=== PATIENT | male | born 1960 | race African-American/Black ===

== ENCOUNTER 2018-10-26 12:10 | Inpatient (IN) ==
[2018-10-26] MEDS ORDERED: NITROGLYCERIN SL 0.4 MG TABLET SL PRN (15:50)
[2018-10-26] MEDS ORDERED: ONDANSETRON 4 MG/2 ML VIAL IV PRN (15:50)
[2018-10-26] MEDS ORDERED: POTASSIUM CHLORIDE 20 MEQ TABLET PO PRN (15:50)
[2018-10-26 18:18] LABS: Risk Ratio 3.05
[2018-10-26] MEDS ORDERED: ENOXAPARIN 40 MG/0.4 ML SYRINGE SUBCUT SCH (21:00)
[2018-10-27 05:18] LABS: Basophils % 0.8 % (0.0-0.8); Eosinophils # 0.2 10*3/uL (0.0-0.87); Eosinophils % 3.8 % (0.00-10.9); Hematocrit 43.4 VOL% (42.0-52.0); Hemoglobin 14.2 GM/DL (14.0-18.0); Immature Granulocytes % 0.4 %; Immature Granulocytes Absolute 0.02 #; Lymphocytes # 3.1 10*3/uL (1.4-4.0); Lymphocytes % 57.7 % (21.2-54.2); Mean Corpuscular HGB Conc 32.7 GM/DL (32-36); Mean Corpuscular Volume 90.2 FL (87-102); Mean Platelet Volume 12.5 FL (9.6-12.0); Monocytes % 8.7 % (1.7-12.7); Neutrophils % 28.6 % (38.7-73.9); Platelet Count 191 T/CUMM (130-400); Red Blood Count 4.81 MC/CUMM (3.8-5.5); Red Cell Distribution Width 12.8 % (9.3-17.3); White Blood Count 5.3 T/CUMM (4-12)
[2018-10-27 05:41] LABS: Eosinophils 4 % (0-10); Hypochromasia 1+; Lymphocytes 50 % (20-55); Platelet Estimate Adequate; Segmented Neutrophils 38 % (50-85); Total Cells Counted 100
[2018-10-27 05:42] LABS: Atypical Lymphocytes Few
[2018-10-27 06:00] LABS: Albumin 3.6 G/DL (3.4-5.0); Calcium 9.2 MG/DL (8.5-10.1); Osmolality,Calculated 274.7 MOS/KG (273-304); Total Protein 7.7 G/DL (6.4-8.3)
[2018-10-27] MEDS ORDERED: amLODIPine 10 MG TABLET PO SCH (09:00)
[2018-10-27] MEDS ORDERED: ASPIRIN EC 325 MG TABLET PO SCH (09:00)
[2018-10-27] MEDS ORDERED: HEPARIN DRIP 25,000 UNITS/500 ML PREMIX IV SCH (09:30)
[2018-10-27] MEDS ORDERED: CLOPIDOGREL 300 MG TABLET PO ONE (09:33)
[2018-10-27] MEDS: ASPIRIN EC 81 MG TABLET PO SCH (10:02)
[2018-10-27] MEDS: LISINOPRIL/HCTZ 20-25 MG TABLET PO SCH (10:02)
[2018-10-27] MEDS: ATORVASTATIN 40 MG TABLET PO SCH (10:03)
[2018-10-27] MEDS: SODIUM CHLORIDE 0.45% 1,000 ML IV SCH ×2 (10:04→17:33)
[2018-10-27] MEDS ORDERED: MAGNESIUM SULF RIDER 2 GM in PREMIX 1 EACH IV PRN (10:27)
[2018-10-27] MEDS ORDERED: DIAZEPAM 5 MG TABLET PO ONE (10:27)
[2018-10-27] MEDS ORDERED: diphenhydrAMINE CAP 25 MG CAPSULE PO ONE (10:27)
[2018-10-27] MEDS ORDERED: LIDOCAINE 1% 20 ML VIAL ONE (10:34)
[2018-10-27] MEDS ORDERED: HEPARIN/NACL 0.9% 2 UNITS/ML 1,000 ML IV ONE (10:34)
[2018-10-27] MEDS ORDERED: MIDAZOLAM 2 MG/2 ML VIAL ONE (10:54)
[2018-10-27] MEDS ORDERED: fentaNYL 100 MCG/2 ML VIAL ONE (10:54)
[2018-10-27] MEDS: METOPROLOL SUCCINATE XL 25 MG TABLET PO SCH (13:45)
[2018-10-27] MEDS: HEPARIN DRIP 25,000 UNITS/500 ML PREMIX IV SCH (14:47)
[2018-10-27] MEDS ORDERED: HEPARIN 5,000 UNIT/1 ML VIAL IV ONE (17:32)
[2018-10-28 05:41] LABS: Basophils % 0.7 % (0.0-0.8); Eosinophils # 0.2 10*3/uL (0.0-0.87); Eosinophils % 3.6 % (0.00-10.9); Hematocrit 43.2 VOL% (42.0-52.0); Hemoglobin 14.5 GM/DL (14.0-18.0); Immature Granulocytes % 0.3 %; Immature Granulocytes Absolute 0.02 #; Lymphocytes # 2.9 10*3/uL (1.4-4.0); Lymphocytes % 49.8 % (21.2-54.2); Mean Corpuscular HGB Conc 33.6 GM/DL (32-36); Mean Corpuscular Volume 88.9 FL (87-102); Mean Platelet Volume 13.1 FL (9.6-12.0); Neutrophils % 36.6 % (38.7-73.9); Platelet Count 179 T/CUMM (130-400); Red Blood Count 4.86 MC/CUMM (3.8-5.5); Red Cell Distribution Width 12.6 % (9.3-17.3); White Blood Count 5.9 T/CUMM (4-12)
[2018-10-28 06:01] LABS: Calcium 9.1 MG/DL (8.5-10.1); Osmolality,Calculated 276.7 MOS/KG (273-304)
[2018-10-28 06:05] LABS: Eosinophils 4 % (0-10); Hypochromasia Slight; Lymphocytes 46 % (20-55); Platelet Estimate Adequate; Segmented Neutrophils 44 % (50-85); Total Cells Counted 100
[2018-10-28] MEDS ORDERED: CLOPIDOGREL 75 MG TABLET PO SCH (09:00)
[2018-10-28] MEDS: ATORVASTATIN 40 MG TABLET PO SCH (09:06)
[2018-10-28] MEDS: METOPROLOL SUCCINATE XL 25 MG TABLET PO SCH (09:06)
[2018-10-28] MEDS: ASPIRIN EC 81 MG TABLET PO SCH (09:06)
[2018-10-28] MEDS: LISINOPRIL/HCTZ 20-25 MG TABLET PO SCH (09:07)
[2018-10-28] MEDS: HEPARIN DRIP 25,000 UNITS/500 ML PREMIX IV SCH ×2 (09:07→15:35)
[2018-10-28] MEDS: SODIUM CHLORIDE 0.45% 1,000 ML IV SCH ×2 (11:37)
[2018-10-29 05:01] LABS: Basophils % 0.6 % (0.0-0.8); Eosinophils # 0.2 10*3/uL (0.0-0.87); Eosinophils % 2.8 % (0.00-10.9); Immature Granulocytes % 0.3 %; Immature Granulocytes Absolute 0.02 #; Lymphocytes # 2.9 10*3/uL (1.4-4.0); Lymphocytes % 45.6 % (21.2-54.2); Mean Corpuscular HGB Conc 33.3 GM/DL (32-36); Mean Platelet Volume 12.7 FL (9.6-12.0); Monocytes % 10.1 % (1.7-12.7); Neutrophils % 40.6 % (38.7-73.9); Platelet Count 175 T/CUMM (130-400); Red Blood Count 4.72 MC/CUMM (3.8-5.5); Red Cell Distribution Width 12.6 % (9.3-17.3); White Blood Count 6.4 T/CUMM (4-12)
[2018-10-29 05:17] LABS: Calcium 9.2 MG/DL (8.5-10.1); Osmolality,Calculated 273.8 MOS/KG (273-304)
[2018-10-29] MEDS: HEPARIN DRIP 25,000 UNITS/500 ML PREMIX IV SCH (07:24)
[2018-10-29] MEDS: SODIUM CHLORIDE 0.45% 1,000 ML IV SCH ×3 (07:52→23:28)
[2018-10-29] MEDS: METOPROLOL SUCCINATE XL 25 MG TABLET PO SCH (09:20)
[2018-10-29] MEDS: LISINOPRIL/HCTZ 20-25 MG TABLET PO SCH (09:21)
[2018-10-29] MEDS: ATORVASTATIN 40 MG TABLET PO SCH (09:21)
[2018-10-29] MEDS: ASPIRIN EC 81 MG TABLET PO SCH (09:21)
[2018-10-29] MEDS: POTASSIUM CHLORIDE 20 MEQ TABLET PO PRN ×3 (10:43→14:50)
[2018-10-29] MEDS: SODIUM CHLORIDE 0.9% 1,000 ML IV SCH (14:47)
[2018-10-29] MEDS: CHLORHEXIDINE 4% SOLN 118 ML BOTTLE TOP SCH ×2 (14:53→21:11)
[2018-10-29] MEDS: CHLORHEXIDINE 0.12% ORAL RINSE 60 ML BOTTLE SWISH/SPIT SCH (21:08)
[2018-10-30 04:11] LABS: Basophils % 0.5 % (0.0-0.8); Eosinophils # 0.2 10*3/uL (0.0-0.87); Eosinophils % 3.8 % (0.00-10.9); Hematocrit 42.5 VOL% (42.0-52.0); Immature Granulocytes % 0.5 %; Immature Granulocytes Absolute 0.03 #; Lymphocytes # 2.5 10*3/uL (1.4-4.0); Lymphocytes % 42.6 % (21.2-54.2); Mean Corpuscular HGB Conc 32.9 GM/DL (32-36); Mean Corpuscular Volume 89.9 FL (87-102); Mean Platelet Volume 12.4 FL (9.6-12.0); Neutrophils % 41.6 % (38.7-73.9); Platelet Count 176 T/CUMM (130-400); Red Blood Count 4.73 MC/CUMM (3.8-5.5); Red Cell Distribution Width 12.7 % (9.3-17.3); White Blood Count 5.8 T/CUMM (4-12)
[2018-10-30] MEDS ORDERED: PAPAVERINE 60 MG/2 ML VIAL ONE (04:26)
[2018-10-30] MEDS ORDERED: TISSUE ADHESIVE 1 EACH APPLICATOR TOP ONE (04:26)
[2018-10-30] MEDS ORDERED: VANCOMYCIN 1,000 MG VIAL ONE (04:26)
[2018-10-30] MEDS: CHLORHEXIDINE 4% SOLN 118 ML BOTTLE TOP SCH ×2 (04:30→08:41)
[2018-10-30 04:32] LABS: Calcium 9.4 MG/DL (8.5-10.1); Osmolality,Calculated 272.8 MOS/KG (273-304)
[2018-10-30] MEDS ORDERED: SUFentanil 50 MCG/ML AMP ONE (05:53)
[2018-10-30] MEDS ORDERED: SUFentanil 250 MCG/5 ML AMP ONE (05:53)
[2018-10-30] MEDS ORDERED: ePHEDrine 50 MG/ML AMP ONE (05:54)
[2018-10-30] MEDS ORDERED: MIDAZOLAM 10 MG/2 ML VIAL ONE (05:54)
[2018-10-30] MEDS: METOPROLOL SUCCINATE XL 25 MG TABLET PO SCH ×2 (06:04→08:42)
[2018-10-30] MEDS ORDERED: DIAZEPAM 5 MG TABLET PO ONE (06:30)
[2018-10-30] MEDS ORDERED: FAMOTIDINE 20 MG TABLET PO ONE (06:30)
[2018-10-30] MEDS ORDERED: CEFUROXIME 1,500 MG VIAL ONE (06:48)
[2018-10-30 07:35] LABS: ABG Base Excess 0.6 MMOL/L (-2.5-2.5); ABG Oxygen Saturation 99.9 % (95-100); ABG PCO2 35.8 MM HG (35-48); ABG TCO2 20.9 MMOL/L (23-27); Glucose Heart Surgery 119 MG/DL (74-106); Hematocrit Heart Surgery 42.2 PERCENT (42-52); Hemoglobin Heart Surgery 13.8 G/DL (14.0-18.0); Ionized Calcium Arterial 1.21 MMOL/L (1.21-1.46); PCO2 Patient Temp Arterial 35.8 MMHG; Patient Temperature 37 CELCIUS; Sodium Heart/CVR 137 MMOL/L (135-145)
[2018-10-30 07:57] LABS: Apearance,Urine CLEAR (Clear); Bilirubin,Urine Negative (Negative); Blood, Urine Moderate mg/dL (Negative); Glucose,Urine (UA) Negative (Negative); Ketones,Urine Negative (Negative); Mucus,Urine Occasional /LPF (Occasional); Nitrite,Urine Negative (Negative); Protein,Urine Negative; RBC,Urine 6 /HPF (0-4); Squamous Epithelial Cell,Urine Occasional /HPF (0-10); Urine Color Straw (Yellow); Urine Specific Gravity 1.008 (1.001-1.035); Urine Urobilinogen < 2.0 EU/DL (0.2-1.0); WBC,Urine <1 /HPF (0-6)
[2018-10-30] MEDS: ATORVASTATIN 40 MG TABLET PO SCH (08:41)
[2018-10-30] MEDS: ASPIRIN EC 81 MG TABLET PO SCH (08:41)
[2018-10-30] MEDS: SODIUM CHLORIDE 0.45% 1,000 ML IV SCH ×4 (08:41→23:29)
[2018-10-30] MEDS: LISINOPRIL/HCTZ 20-25 MG TABLET PO SCH (08:42)
[2018-10-30] MEDS: CEFUROXIME INJ 1,500 MG in SYRINGE 1 EACH IV ONE ×2 (08:42→09:03)
[2018-10-30] MEDS: SODIUM CHLORIDE 0.9% 1,000 ML IV SCH (08:42)
[2018-10-30] MEDS: CHLORHEXIDINE 0.12% ORAL RINSE 60 ML BOTTLE SWISH/SPIT SCH ×2 (08:42→21:47)
[2018-10-30] MEDS: HEPARIN DRIP 25,000 UNITS/500 ML PREMIX IV SCH (08:51)
[2018-10-30 08:52] LABS: Hematocrit Heart Surgery 29.7 PERCENT (42-52); Hemoglobin Heart Surgery 9.6 G/DL (14.0-18.0); PCO2 Patient Temp Venous 32.3 MM HG; PH Patient Temp Venous 7.49; PO2 Patient Temp Venous 39.3 MM HG; Potassium Heart/CVR 4.7 MMOL/L (3.5-5.1); VBG Base Excess 1.7 MEQ/L (0-4); VBG HCO3 25.7 MEQ/L (24-28); VBG PCO2 35.6 MMHG (41-51); VBG PH 7.46; VBG PO2 45.1 MMHG (17-40)
[2018-10-30] MEDS ORDERED: NITROPRUSSIDE 50 MG/2 ML VIAL ONE (08:55)
[2018-10-30] MEDS ORDERED: CALCIUM CHLORIDE 1,000 MG/10 ML SYRINGE IV ONE (08:55)
[2018-10-30] MEDS ORDERED: SODIUM BICARBONATE 50 MEQ/50 ML VIAL IV ONE ×2 (08:55→09:55)
[2018-10-30] MEDS ORDERED: PHENYLEPHRINE DRIP 40 MG/250 ML PREMIX IV ONE (08:55)
[2018-10-30] MEDS ORDERED: POTASSIUM CHLORIDE RIDER 100 ML IV ONE (08:56)
[2018-10-30] MEDS ORDERED: ALBUMIN 5% 12.5 GM/250 ML VIAL IV ONE ×2 (08:56→10:29)
[2018-10-30 09:37] LABS: ABG Base Excess -2.6 MMOL/L (-2.5-2.5); ABG HCO3 22.3 MMOL/L (20-26); ABG Oxygen Saturation 99.7 % (95-100); ABG PCO2 40.5 MM HG (35-48); ABG PH 7.357 (7.35-7.45); ABG TCO2 20.4 MMOL/L (23-27); Glucose Heart Surgery 229 MG/DL (74-106); Hematocrit Heart Surgery 34.9 PERCENT (42-52); Hemoglobin Heart Surgery 11.3 G/DL (14.0-18.0); Ionized Calcium Arterial 1.33 MMOL/L (1.21-1.46); PCO2 Patient Temp Arterial 40.5 MMHG; PH Patient Temp Arterial 7.357; Patient Temperature 37 CELCIUS; Potassium Heart/CVR 3.8 MMOL/L (3.5-5.1); Sodium Heart/CVR 134 MMOL/L (135-145)
[2018-10-30] MEDS ORDERED: ALBUMIN 25% 25 GM/100 ML VIAL IV ONE (09:55)
[2018-10-30] MEDS ORDERED: MANNITOL 100 GM/500 ML BAG IV ONE (09:55)
[2018-10-30] MEDS ORDERED: DEXTROSE 5% KCL 20 MEQ 20 MEQ/1,000 ML BAG IV ONE (09:55)
[2018-10-30] MEDS ORDERED: MAGNESIUM SULFATE 5 GM/10 ML VIAL IV ONE (09:55)
[2018-10-30] MEDS ORDERED: PROTAMINE SULFATE 250 MG/25 ML VIAL IV ONE (09:55)
[2018-10-30] MEDS ORDERED: LIDOCAINE 2% 5 ML VIAL ONE ×2 (09:55→10:29)
[2018-10-30] MEDS ORDERED: HEPARIN 10,000 UNIT/10 ML VIAL ONE (09:56)
[2018-10-30] MEDS ORDERED: FUROSEMIDE 20 MG/2 ML VIAL ONE (09:56)
[2018-10-30] MEDS ORDERED: PROTAMINE SULFATE 50 MG/5 ML VIAL IV ONE (09:56)
[2018-10-30] MEDS ORDERED: methylPREDNISolone SOD SUC 1,000 MG/8 ML VIAL ONE (09:56)
[2018-10-30 10:06] LABS: HIV Antigen/Antibody Result Nonreactive (Nonreactive); Hepatitis B Surface Ag Quant 0.11 Index; Hepatitis B Surface Ag Result Negative (Negative); Hepatitis C Virus Ab Quant 0.55 Index; Hepatitis C Virus Ab Result Negative (Negative)
[2018-10-30] MEDS ORDERED: PHENYLEPHRINE DRIP 20 MG/250 ML PREMIX IV ONE (10:29)
[2018-10-30] MEDS ORDERED: CALCIUM CHLORIDE 1,000 MG/10 ML VIAL IV ONE (10:29)
[2018-10-30] MEDS ORDERED: SEVOFLURANE 1 UNIT/15 MINUTE INH ONE (10:30)
[2018-10-30] MEDS ORDERED: VECURONIUM 10 MG VIAL IV ONE (10:30)
[2018-10-30] MEDS ORDERED: NITROGLYCERIN DRIP 50 MG/250 ML BOTTLE IV ONE (10:30)
[2018-10-30] MEDS ORDERED: AMINOCAPROIC ACID 5,000 MG/20 ML VIAL ONE (10:30)
[2018-10-30] MEDS ORDERED: ETOMIDATE 40 MG/20 ML VIAL IV ONE (10:30)
[2018-10-30] MEDS ORDERED: SODIUM CHLORIDE 0.9% 1,000 ML IV ONE (10:30)
[2018-10-30] MEDS ORDERED: SODIUM CHLORIDE 0.9% 250 ML IV ONE (10:30)
[2018-10-30] MEDS ORDERED: SODIUM CHLORIDE 0.9% 100 ML IV ONE (10:30)
[2018-10-30] MEDS ORDERED: LACTATED RINGERS 1,000 ML IV ONE (10:30)
[2018-10-30] MEDS ORDERED: METOPROLOL TARTRATE 5 MG/5 ML VIAL IV ONE (10:30)
[2018-10-30] MEDS ORDERED: HEPARIN/NACL 0.9% 2 UNITS/ML 500 ML IV ONE (10:31)
[2018-10-30] MEDS: ALBUMIN 5% 12.5 GM in PREMIX 1 EACH IV PRN ×3 (10:45→15:04)
[2018-10-30] MEDS ORDERED: MORPHINE 10 MG/1 ML VIAL IV PRN (10:58)
[2018-10-30] MEDS ORDERED: ACETAMINOPHEN 650 MG SUPP RECTAL PRN (10:58)
[2018-10-30] MEDS ORDERED: CHLORHEXIDINE 4% SOLN 118 ML BOTTLE TOP PRN (10:58)
[2018-10-30] MEDS ORDERED: CALCIUM CHLORIDE 1,000 MG/10 ML SYRINGE IV PRN (10:58)
[2018-10-30] MEDS ORDERED: DEXTROSE 50% 25 GM/50 ML VIAL IV PRN ×2 (10:58)
[2018-10-30] MEDS ORDERED: MIDAZOLAM 2 MG/2 ML VIAL IV PRN (10:58)
[2018-10-30] MEDS ORDERED: MAGNESIUM SULF RIDER 2 GM in PREMIX 1 EACH IV PRN (10:58)
[2018-10-30] MEDS ORDERED: MAGNESIUM SULF RIDER 4 GM in PREMIX 1 EACH IV PRN (10:58)
[2018-10-30] MEDS: SODIUM CHLORIDE 0.9% 250 ML IV PRN ×4 (11:00→18:20)
[2018-10-30 11:01] LABS: ABG Base Excess -0.8 MMOL/L (-2.5-2.5); ABG HCO3 23.6 MMOL/L (20-26); ABG Oxygen Saturation 95.3 % (95-100); ABG PCO2 40.7 MM HG (35-48); ABG PH 7.382 (7.35-7.45); ABG PO2 76.5 MM HG (80-95); ABG TCO2 20.9 MMOL/L (23-27); Glucose Heart Surgery 200 MG/DL (74-106); Hematocrit Heart Surgery 42.7 PERCENT (42-52); Hemoglobin Heart Surgery 13.9 G/DL (14.0-18.0); Potassium Heart/CVR 3.9 MMOL/L (3.5-5.1)
[2018-10-30] MEDS ORDERED: PHENYLEPHRINE DRIP 40 MG/250 ML PREMIX IV PRN (11:04)
[2018-10-30 11:21] LABS: Blood Urea Nitrogen 12 MG/DL (7-18); Calcium 8.9 MG/DL (8.5-10.1); Glucose 180 MG/DL (74-106); Osmolality,Calculated 277.8 MOS/KG (273-304)
[2018-10-30] MEDS ORDERED: INSULIN REGULAR DRIP 100 ML IV PRN (11:31)
[2018-10-30] MEDS: POTASSIUM CHLORIDE RIDER 20 MEQ in PREMIX 1 EACH IV PRN ×3 (11:35→21:46)
[2018-10-30] MEDS ORDERED: ASPIRIN 325 MG TABLET PO ONE (12:23)
[2018-10-30 12:33] LABS: Basophils % 0.5 % (0.0-0.8); Eosinophils # 0.1 10*3/uL (0.0-0.87); Hematocrit 38.7 VOL% (42.0-52.0); Hemoglobin 12.9 GM/DL (14.0-18.0); Immature Granulocytes % 0.8 %; Immature Granulocytes Absolute 0.05 #; Lymphocytes # 1.3 10*3/uL (1.4-4.0); Lymphocytes % 19.7 % (21.2-54.2); Mean Corpuscular HGB Conc 33.3 GM/DL (32-36); Mean Corpuscular Volume 90.2 FL (87-102); Mean Platelet Volume 12.9 FL (9.6-12.0); Monocytes % 4.8 % (1.7-12.7); Neutrophils % 72.2 % (38.7-73.9); Platelet Count 135 T/CUMM (130-400); Red Blood Count 4.29 MC/CUMM (3.8-5.5); Red Cell Distribution Width 12.9 % (9.3-17.3); White Blood Count 6.7 T/CUMM (4-12)
[2018-10-30] MEDS: POTASSIUM CHLORIDE RIDER 10 MEQ in PREMIX 1 EACH IV PRN ×2 (12:38→16:09)
[2018-10-30 12:40] LABS: INR 1.1; PT Patient Result 11.5 SECS (9.6-12.2); Partial Thromboplastin Time 27.3 SECS (20.8-36.0)
[2018-10-30] MEDS: INSULIN REGULAR 100 UNIT/ML IV PRN ×3 (14:21→20:04)
[2018-10-30 15:02] LABS: ABG Base Excess -0.4 MMOL/L (-2.5-2.5); ABG HCO3 24.1 MMOL/L (20-26); ABG Oxygen Saturation 97.8 % (95-100); ABG PCO2 42.3 MM HG (35-48); ABG PH 7.377 (7.35-7.45); ABG PO2 97.5 MM HG (80-95); ABG TCO2 22.4 MMOL/L (23-27); Glucose Heart Surgery 171 MG/DL (74-106); Hematocrit Heart Surgery 33.5 PERCENT (42-52); Hemoglobin Heart Surgery 10.9 G/DL (14.0-18.0); Potassium Heart/CVR 3.9 MMOL/L (3.5-5.1)
[2018-10-30] MEDS: MORPHINE 4 MG/1 ML VIAL IV PRN ×2 (15:48→21:47)
[2018-10-30] MEDS: CEFUROXIME INJ 1,500 MG in SYRINGE 1 EACH IV SCH (17:19)
[2018-10-30 20:52] LABS: ABG HCO3 21.9 MMOL/L (20-26); ABG Oxygen Saturation 97.9 % (95-100); ABG PCO2 39.9 MM HG (35-48); ABG PH 7.355 (7.35-7.45); ABG TCO2 20.2 MMOL/L (23-27); Glucose Heart Surgery 152 MG/DL (74-106); Hematocrit Heart Surgery 32.6 PERCENT (42-52); Hemoglobin Heart Surgery 10.5 G/DL (14.0-18.0); Potassium Heart/CVR 4.3 MMOL/L (3.5-5.1)
[2018-10-30] MEDS: ONDANSETRON 4 MG/2 ML VIAL IV PRN (21:46)
[2018-10-31 05:11] LABS: Basophils % 0.1 % (0.0-0.8); Hematocrit 30.6 VOL% (42.0-52.0); Immature Granulocytes % 0.6 %; Immature Granulocytes Absolute 0.06 #; Lymphocytes # 0.7 10*3/uL (1.4-4.0); Lymphocytes % 6.3 % (21.2-54.2); Mean Corpuscular HGB Conc 32.7 GM/DL (32-36); Mean Corpuscular Volume 91.1 FL (87-102); Mean Platelet Volume 11.8 FL (9.6-12.0); Monocytes % 5.9 % (1.7-12.7); Neutrophils % 87.1 % (38.7-73.9); Platelet Count 141 T/CUMM (130-400); Red Blood Count 3.36 MC/CUMM (3.8-5.5); Red Cell Distribution Width 13.2 % (9.3-17.3); White Blood Count 10.9 T/CUMM (4-12)
[2018-10-31] MEDS: SODIUM CHLORIDE 0.45% 1,000 ML IV SCH ×2 (05:22→08:52)
[2018-10-31 05:37] LABS: Calcium 8.4 MG/DL (8.5-10.1); Osmolality,Calculated 279.5 MOS/KG (273-304)
[2018-10-31] MEDS: INSULIN REGULAR 100 UNIT/ML IV PRN (05:57)
[2018-10-31] MEDS: CEFUROXIME INJ 1,500 MG in SYRINGE 1 EACH IV SCH ×2 (06:09→17:42)
[2018-10-31] MEDS: POTASSIUM CHLORIDE RIDER 20 MEQ in PREMIX 1 EACH IV PRN (06:15)
[2018-10-31] MEDS: POTASSIUM CHLORIDE RIDER 10 MEQ in PREMIX 1 EACH IV PRN (06:44)
[2018-10-31] MEDS: INSULIN REGULAR 100 UNIT/ML SUBCUT SCH ×4 (07:30→21:12)
[2018-10-31] MEDS: CHLORHEXIDINE 0.12% ORAL RINSE 60 ML BOTTLE SWISH/SPIT SCH ×2 (08:18→21:13)
[2018-10-31] MEDS: ASPIRIN EC 325 MG TABLET PO SCH (08:18)
[2018-10-31] MEDS: PANTOPRAZOLE 40 MG VIAL IV SCH (08:18)
[2018-10-31] MEDS: FUROSEMIDE 40 MG TABLET PO SCH (08:18)
[2018-10-31] MEDS ORDERED: FUROSEMIDE 40 MG/4 ML VIAL IV ONE (08:45)
[2018-10-31] MEDS: METOPROLOL TARTRATE 25 MG TABLET PO SCH ×2 (10:22→21:13)
[2018-10-31] MEDS: MORPHINE 4 MG/1 ML VIAL IV PRN (14:02)
[2018-10-31] MEDS: ACETAMINOPHEN 325 MG TABLET PO PRN (17:42)
[2018-10-31] MEDS: ATORVASTATIN 40 MG TABLET PO SCH (21:12)
[2018-11-01 05:03] LABS: Hematocrit 30.8 VOL% (42.0-52.0); Hemoglobin 9.9 GM/DL (14.0-18.0); Immature Granulocytes % 0.7 %; Immature Granulocytes Absolute 0.09 #; Lymphocytes # 1.2 10*3/uL (1.4-4.0); Lymphocytes % 9.4 % (21.2-54.2); Mean Corpuscular HGB Conc 32.1 GM/DL (32-36); Mean Corpuscular Volume 92.5 FL (87-102); Mean Platelet Volume 12.9 FL (9.6-12.0); Monocytes % 9.5 % (1.7-12.7); Neutrophils % 80.4 % (38.7-73.9); Platelet Count 157 T/CUMM (130-400); Red Blood Count 3.33 MC/CUMM (3.8-5.5); White Blood Count 12.4 T/CUMM (4-12)
[2018-11-01 05:30] LABS: Calcium 8.4 MG/DL (8.5-10.1); Osmolality,Calculated 277.8 MOS/KG (273-304)
[2018-11-01] MEDS: POTASSIUM CHLORIDE RIDER 20 MEQ in PREMIX 1 EACH IV PRN (05:45)
[2018-11-01] MEDS: INSULIN REGULAR 100 UNIT/ML SUBCUT SCH ×4 (07:43→21:22)
[2018-11-01] MEDS: FUROSEMIDE 40 MG TABLET PO SCH (08:18)
[2018-11-01] MEDS: ASPIRIN EC 325 MG TABLET PO SCH (08:18)
[2018-11-01] MEDS: PANTOPRAZOLE 40 MG VIAL IV SCH (08:18)
[2018-11-01] MEDS: METOPROLOL TARTRATE 25 MG TABLET PO SCH ×3 (08:19→21:25)
[2018-11-01] MEDS: CHLORHEXIDINE 0.12% ORAL RINSE 60 ML BOTTLE SWISH/SPIT SCH ×2 (08:23→21:25)
[2018-11-01] MEDS: ONDANSETRON 4 MG/2 ML VIAL IV PRN (16:04)
[2018-11-01] MEDS: ACETAMINOPHEN 325 MG TABLET PO PRN (16:05)
[2018-11-01] MEDS: ATORVASTATIN 40 MG TABLET PO SCH (21:25)
[2018-11-02 04:52] LABS: Basophils % 0.2 % (0.0-0.8); Eosinophils % 0.3 % (0.00-10.9); Hematocrit 29.4 VOL% (42.0-52.0); Hemoglobin 9.5 GM/DL (14.0-18.0); Immature Granulocytes % 0.4 %; Immature Granulocytes Absolute 0.04 #; Lymphocytes # 2.1 10*3/uL (1.4-4.0); Lymphocytes % 22.8 % (21.2-54.2); Mean Corpuscular HGB Conc 32.3 GM/DL (32-36); Mean Corpuscular Volume 92.2 FL (87-102); Mean Platelet Volume 12.8 FL (9.6-12.0); Monocytes % 11.5 % (1.7-12.7); Neutrophils % 64.8 % (38.7-73.9); Platelet Count 146 T/CUMM (130-400); Red Blood Count 3.19 MC/CUMM (3.8-5.5); Red Cell Distribution Width 12.3 % (9.3-17.3); White Blood Count 9.1 T/CUMM (4-12)
[2018-11-02 05:09] LABS: Calcium 8.5 MG/DL (8.5-10.1)
[2018-11-02] MEDS: POTASSIUM CHLORIDE RIDER 10 MEQ in PREMIX 1 EACH IV PRN ×2 (05:30→06:29)
[2018-11-02] MEDS: INSULIN REGULAR 100 UNIT/ML SUBCUT SCH ×4 (08:34→22:04)
[2018-11-02] MEDS: PANTOPRAZOLE 40 MG VIAL IV SCH (09:24)
[2018-11-02] MEDS: ASPIRIN EC 325 MG TABLET PO SCH (09:25)
[2018-11-02] MEDS: FUROSEMIDE 40 MG TABLET PO SCH (09:25)
[2018-11-02] MEDS: CHLORHEXIDINE 0.12% ORAL RINSE 60 ML BOTTLE SWISH/SPIT SCH ×2 (09:25→21:38)
[2018-11-02] MEDS: METOPROLOL TARTRATE 25 MG TABLET PO SCH ×4 (09:25→21:47)
[2018-11-02] MEDS: PANTOPRAZOLE 40 MG TABLET PO SCH (09:26)
[2018-11-02] MEDS: ATORVASTATIN 40 MG TABLET PO SCH (21:39)
[2018-11-03 04:55] LABS: Basophils % 0.5 % (0.0-0.8); Eosinophils # 0.1 10*3/uL (0.0-0.87); Eosinophils % 2.2 % (0.00-10.9); Hematocrit 26.4 VOL% (42.0-52.0); Hemoglobin 8.5 GM/DL (14.0-18.0); Immature Granulocytes % 0.9 %; Immature Granulocytes Absolute 0.06 #; Lymphocytes # 2.2 10*3/uL (1.4-4.0); Lymphocytes % 34.3 % (21.2-54.2); Mean Corpuscular HGB Conc 32.2 GM/DL (32-36); Mean Platelet Volume 12.5 FL (9.6-12.0); Monocytes % 11.3 % (1.7-12.7); NRBC # 0.04 10*3/uL; Neutrophils % 50.8 % (38.7-73.9); Platelet Count 160 T/CUMM (130-400); Red Blood Count 2.87 MC/CUMM (3.8-5.5); White Blood Count 6.4 T/CUMM (4-12)
[2018-11-03 05:18] LABS: Calcium 7.3 MG/DL (8.5-10.1); Osmolality,Calculated 282.3 MOS/KG (273-304)
[2018-11-03 05:19] LABS: Eosinophils 1 % (0-10); Hypochromasia 1+; Lymphocytes 30 % (20-55); Nucleated Red Blood Cells 1 (0-5); Platelet Estimate Adequate; Segmented Neutrophils 55 % (50-85); Total Cells Counted 100
[2018-11-03] MEDS ORDERED: POTASSIUM CHLORIDE 20 MEQ TABLET PO ONE (07:10)
[2018-11-03] MEDS: INSULIN REGULAR 100 UNIT/ML SUBCUT SCH ×4 (07:48→21:23)
[2018-11-03] MEDS: POTASSIUM CHLORIDE 20 MEQ TABLET PO SCH (08:41)
[2018-11-03] MEDS: ASPIRIN EC 325 MG TABLET PO SCH (08:41)
[2018-11-03] MEDS: PANTOPRAZOLE 40 MG TABLET PO SCH (08:42)
[2018-11-03] MEDS: METOPROLOL TARTRATE 25 MG TABLET PO SCH ×4 (08:42→21:24)
[2018-11-03] MEDS: FUROSEMIDE 40 MG TABLET PO SCH (08:42)
[2018-11-03] MEDS: CHLORHEXIDINE 0.12% ORAL RINSE 60 ML BOTTLE SWISH/SPIT SCH ×2 (08:42→21:03)
[2018-11-03] MEDS ORDERED: CALCIUM GLUCONATE 1,000 MG in SODIUM CHLORIDE 0.9% 100 ML IV ONE (10:00)
[2018-11-03] MEDS: ATORVASTATIN 40 MG TABLET PO SCH (21:05)
[2018-11-04] MEDS: ASPIRIN EC 325 MG TABLET PO SCH (08:54)
[2018-11-04] MEDS: CHLORHEXIDINE 0.12% ORAL RINSE 60 ML BOTTLE SWISH/SPIT SCH (08:55)
[2018-11-04] MEDS: PANTOPRAZOLE 40 MG TABLET PO SCH (08:55)
[2018-11-04] MEDS: POTASSIUM CHLORIDE 20 MEQ TABLET PO SCH (08:55)
[2018-11-04] MEDS: METOPROLOL TARTRATE 25 MG TABLET PO SCH ×2 (08:55→09:16)
[2018-11-04] MEDS ORDERED: FUROSEMIDE 20 MG TABLET PO SCH (09:00)
[2018-11-04 09:14] LABS: Calcium 9.3 MG/DL (8.5-10.1); Osmolality,Calculated 274.1 MOS/KG (273-304)
[2018-11-04] MEDS: INSULIN REGULAR 100 UNIT/ML SUBCUT SCH ×2 (09:16→12:59)
[2018-11-04] MEDS: POTASSIUM CHLORIDE RIDER 10 MEQ in PREMIX 1 EACH IV PRN (10:38)
[2018-11-04 12:23] VITALS: BP 113/78
== END 2018-11-04 14:37 | disposition home health service (06) | DRG 234 ==
LOC: N.TELES → SUATTDRO 15:22 → N.CVR 10-30 08:51 → N.ICU 10-31 09:48 → N.TELES 11-01 18:02
PROVIDERS: ADMIT Internal Medicine; ATTEND Internal Medicine Cardiovascular Disease
PROC: CLCCHCL (ICD-10-PCS; 2018-10-27 11:15)